=== PATIENT | male | born 1990 | race African-American/Black ===

== ENCOUNTER 2018-01-10 18:07 | Emergency (ER) | payer OTHER, MEDICAID ==
[~2018-01-10] VITALS: Ht 177.8 cm; Wt 79.4 kg
[2018-01-10 18:47] VITALS: BP_DIAS 89
[2018-01-10] MEDS ORDERED: IBUPROFEN 600 MG TAB PO ONE (20:30)
[2018-01-10] MEDS ORDERED: HYDROcodone-ACET 10/325MG TAB PO ONE (20:30)
[2018-01-10] MEDS ORDERED: BACITRACIN-POLYMYXIN B TOPICAL OINT UD TOP ONE (20:38)
[2018-01-10 20:41] VITALS: BP_SYST 120
[2018-01-10] MEDS ORDERED: BACITRACIN INJ 50000 UNIT VIAL TOP ONE (20:45)
[2018-01-10] MEDS ORDERED: BACITRACIN TOP OINT 1 UD PKG TOP ONE (20:45)
== END 2018-01-10 20:49 | disposition home or self-care (01) ==
LOC: ER 18:07
DX: S01.312A Laceration without foreign body of left ear, initial encounter (principal); Y08.89XA Assault by other specified means, initial encounter; Y93.89 Activity, other specified; Y99.8 Other external cause status; Y92.89 Other specified places as the place of occurrence of the external cause
CPT/HCPCS: 12011; 70450

== ENCOUNTER 2018-06-23 04:28 | Emergency (ER) | payer OTHER, MEDICAID ==
[~2018-06-23] VITALS: Ht 180.3 cm; Wt 72.6 kg
[2018-06-23 04:40] VITALS: BP 130/76
[2018-06-23] MEDS ORDERED: KETOROLAC TROMETH 60MG/2ML VIAL IM ONE (07:00)
[2018-06-23] MEDS ORDERED: METHOCARBAMOL 500 MG TAB PO ONE (07:00)
== END 2018-06-23 07:43 | disposition home or self-care (01) ==
LOC: ER 04:28
DX: M54.5 Low back pain (principal); M54.2 Cervicalgia; V49.49XA Driver injured in collision with other motor vehicles in traffic accident, initial encounter; Y93.89 Activity, other specified; Y99.8 Other external cause status; Y92.488 Other paved roadways as the place of occurrence of the external cause
CPT/HCPCS: 72100; 96372; 99283; J1885